=== PATIENT | male | born 1975 | race Caucasian/White ===

== ENCOUNTER → 2019-06-29 | Outpatient (CLI) | payer BC ==
--- NOTE | 2019-06-29 10:57 | Diagnostic Imaging Report ---
PROCEDURE: CT abdomen and pelvis without contrast. TECHNIQUE: Multiple contiguous axial images were obtained through the abdomen and pelvis without the use of intravenous contrast. Auto Exposure Controls were utilized during the CT exam to meet ALARA standards for radiation dose reduction. INDICATION: Hematuria. COMPARISON: No prior studies are available for comparison. FINDINGS: The lung bases are clear. There is a hiatal hernia present. No discrete liver mass is detected. Gallbladder is unremarkable. No biliary ductal dilatation is identified. Pancreas and spleen are unremarkable. No adrenal mass is detected. There are numerous bilateral nonobstructing renal calculi. There is a 3 mm x 6 mm calcification projected at the level of the mid left ureter. It is uncertain if this represents a true ureteral calculus versus phlebolith immediately adjacent to the left ureter. There does not appear to be significant hydronephrosis. No bladder calculi are seen. Prostate does appear to be mildly enlarged. There is diverticulosis throughout the colon but no evidence of acute diverticulitis. There is no free fluid or fluid collection. No bowel obstruction is identified. The bony structures are nonacute. IMPRESSION: 1. Hiatal hernia. 2. Bilateral nonobstructing nephrolithiasis. 3. 3 mm x 6 mm calcific density at the level of the mid left ureter, uncertain if this represents a true intraureteral calculus versus adjacent phlebolith. No hydronephrosis is seen. 4. Colonic diverticulosis without evidence of acute diverticulitis. 5. Prostatomegaly. Dictated by: Dictated on workstation # [id number]
== END ==
LOC: RAD FS 10:09
PROVIDERS: ATTEND Urology
DX: K44.9 Diaphragmatic hernia without obstruction or gangrene (principal); N20.0 Calculus of kidney; K57.30 Diverticulosis of large intestine without perforation or abscess without bleeding; N40.1 Benign prostatic hyperplasia with lower urinary tract symptoms; N28.89 Other specified disorders of kidney and ureter
CPT/HCPCS: 74176

== ENCOUNTER 2019-06-30 15:51 | Outpatient (RCR) | payer BC ==
--- NOTE | 2019-06-30 16:11 | Diagnostic Imaging Report ---
INDICATION: Left ureteral stone. Two views were obtained. FINDINGS: Bowel gas pattern is nonspecific. No definite stones are seen along the expected course of the left ureter. There are a few phleboliths in the pelvis. IMPRESSION: No definite radiopaque stones are seen along the expected course of the left ureter. Nonspecific bowel gas pattern. Dictated by: Dictated on workstation # [id number]
--- NOTE | 2019-07-11 09:52 | Diagnostic Imaging Report ---
INDICATION: Left ureteral stone COMPARISON: 06/30/2019 TECHNIQUE: 2 radiographs of the abdomen dated 07/08/2019. FINDINGS: The visualized lung bases are clear. Gas and stool is noted throughout the colon. No dilated loops of large or small bowel. No free air. No suspicious calcifications overlying the renal shadows. A 5 mm calcification is noted within the left pelvis, which appears similar to the prior examination, though is not definitely seen on the prior CT. No definite calcifications noted along the expected course of the ureters. Multiple phleboliths are again seen within the lower pelvis bilaterally. No acute osseous abnormality. IMPRESSION: Stable examination. 5 mm calcification overlying the left lower pelvis likely relates to a distal left ureterolith, which has progressed since the prior CT from 06/29/2019 when it was noted within the mid left ureter. Additional phleboliths within the lower pelvis. Dictated by: Dictated on workstation # [id number]
[2019-07-13] MEDS ORDERED: TMSL.4C PO (07:00)
[2019-07-13] MEDS ORDERED: TRAM50TA3 PO (08:59)
[2019-07-13] MEDS ORDERED: PHEN-640 PO (08:59)
[2019-07-13] MEDS ORDERED: SULF1TAB35 PO (08:59)
== END 2019-09-28 | disposition home or self-care (01) ==
LOC: LAB FS 15:51
PROVIDERS: ATTEND Urology
DX: N20.1 Calculus of ureter (principal)
CPT/HCPCS: 74018

== ENCOUNTER 2019-07-12 05:34 | Outpatient (CLI) | payer BC ==
[~2019-07-12] VITALS: Ht 182 cm; Wt 79.5 kg
[2019-07-13] MEDS ORDERED: TMSL.4C PO (07:00)
[2019-07-13] MEDS ORDERED: SULF1TAB35 PO (08:59)
[2019-07-13] MEDS ORDERED: TRAM50TA3 PO (08:59)
[2019-07-13] MEDS ORDERED: PHEN-640 PO (08:59)
== END 2019-07-12 12:37 | disposition home or self-care (01) ==
LOC: PREOP 05:34
PROVIDERS: ATTEND Urology
DX: Z01.818 Encounter for other preprocedural examination (principal)

== ENCOUNTER 2019-07-13 06:30 | Day surgery (SDC) | payer BC ==
[2019-07-13] VITALS (9 sets, daily range): BP systolic 97–131; BP diastolic 59–94
[~2019-07-13] VITALS: Ht 182 cm; Wt 79.5 kg
--- OUTSIDE RECORDS SUMMARY | 2019-07-13 06:34 | XMS REPORT | Continuity of Care Document ---
Author Organization Unknown Address Unknown Phone Unavailable Allergies There is no data. Medications There is no data. Problems Date Dx Coded Attending Type Code Diagnosis Diagnosed By 07/05/2019 AYAN HUFF MD, Ot K44.9 DIAPHRAGMATIC HERNIA WITHOUT OBSTRUCTION 07/05/2019 AYAN HUFF MD, Ot K57.3 0 DVRTCLOS OF LG INT W/O PERFORATION OR AB 07/05/2019 AYAN HUFF MD, Ot N20.0 CALCULUS OF KIDNEY 07/05/2019 AYAN HUFF MD, Ot N28.8 9 OTHER SPECIFIED DISORDERS OF KIDNEY AND 07/05/2019 AYAN HUFF MD, Ot N40.1 BENIGN PROSTATIC HYPERPLASIA WITH LOWER 07/11/2019 AYAN HUFF MD, Ot N20.1 CALCULUS OF URETER Procedures There is no data. Results Test Result Range CMP - 06/07/19 13:27 GLUCOSE 86 mg/dL 65-99 UREA NITROGEN (BUN) 15 mg/dL 7-25 CREATININE 1.06 mg/dL 0.60-1.35 eGFR NON-AFR. SURINAMESE 86 mL/min/1.73m2 > OR = 60 eGFR 100 mL/min/1.73m2 > OR = 60 BUN/CREATININE RATIO NOT APPLICABLE (calc) 6-22 SODIUM 139 mmol/L 135-146 POTASSIUM 4.2 mmol/L 3.5-5.3 CHLORIDE 104 mmol/L 98-110 CARBON DIOXIDE 24 mmol/L 20-32 CALCIUM 9.2 mg/dL 8.6-10.3 PROTEIN, TOTAL 7.3 g/dL 6.1-8.1 ALBUMIN 4.7 g/dL 3.6-5.1 GLOBULIN 2.6 g/dL (calc) 1.9-3.7 ALBUMIN/GLOBULIN RATIO 1.8 (calc) 1.0-2. 5 BILIRUBIN, TOTAL 0.9 mg/dL 0.2-1.2 ALKALINE PHOSPHATASE 86 U/L 36-130 AST 15 U/L 10-40 ALT 20 U/L 9-46 CBC w/MANUAL DIFF - 06/07/19 13:27 WHITE BLOOD CELL COUNT 4.9 Thousand/uL 3 .8-10.8 RED BLOOD CELL COUNT 4.97 Million/uL 4.2 0-5.80 HEMOGLOBIN 15.0 g/dL 13.2-17.1 HEMATOCRIT 42.4 % 38.5-50.0 MCV 85.3 fL 80.0-100.0 MCH 30.2 pg 27.0-33.0 MCHC 35.4 g/dL 32.0-36.0 RDW 13.1 % 11.0-15.0 PLATELET COUNT 244 Thousand/uL 140-400 MPV 10.2 fL 7.5-12.5 ABSOLUTE NEUTROPHILS 1764 cells/uL 1500- 7800 ABSOLUTE MONOCYTES 735 cells/uL 200-950 ABSOLUTE EOSINOPHILS 245 cells/uL 15-500 ABSOLUTE BASOPHILS 147 cells/uL 0-200 NEUTROPHILS 36 % NRG LYMPHOCYTES 38 % NRG MONOCYTES 15 % NRG EOSINOPHILS 5 % NRG BASOPHILS 3 % NRG ABSOLUTE BAND NEUTROPHILS 147 cells/uL 0 -750 ABSOLUTE LYMPHOCYTES 1862 cells/uL 850-3 900 BAND NEUTROPHILS 3 % NRG PLATELET ESTIMATION ADEQUATE ADEQUATE CBC MORPHOLOGY NORMAL Encounters ACCT No. Visit Date/Time Discharge Status Pt. Type Provider Facility Loc./Unit Complaint [id number] 06/07/2019 13:00:00 06/07/2019 23:59: 59 CLS Outpatient RULA CERDA [facility] [id number] 06/07/2019 17:40:00 Document Registration [id number] 06/30/2019 15:51:00 23:59:59 CLS Outpatient AYAN HUFF MD [facility] RAD FS URTERAL STONE [id number] 06/29/2019 10:09:00 23:59:59 CLS Outpatient AYAN HUFF MD [facility] RAD FS R31.0 [id number] 07/13/2019 14:00:00 P EN Preadmit AYAN HUFF MD [facility] SDC LEFT URETERAL STONE
[2019-07-13] MEDS ORDERED: cefTRIAXone FOR IV USE 1,000 MG in WATER (STERILE) FOR INJECTION 10 ML IV ONE (06:45)
[2019-07-13] MEDS ORDERED: TMSL.4C PO (07:00)
[2019-07-13] MEDS ORDERED: CATHETER FLUSH 10 ML SYR IV PRN (07:00)
[2019-07-13] MEDS ORDERED: fentaNYL INJECTION 100 MCG/2 ML AMP ONE (07:01)
[2019-07-13] MEDS ORDERED: MIDAZOLAM 2 MG/2 ML (VERSED) VIAL ONE (07:01)
--- NOTE | 2019-07-13 07:03 | Progress Note-Pre Operative ---
Pre-Operative Progress Note H&P Reviewed The H&P was reviewed, patient examined and no changes noted. Date Seen by Provider: Jul 13, 2019 Time Seen by Provider: 07:03 Date H&P Reviewed: Jul 13, 2019 Time H&P Reviewed: 07:03 Pre-Operative Diagnosis: LT DISTAL URETERAL STONE AYAN HUFF MD Jul 13, 2019 07:03
[2019-07-13] MEDS: LACTATED RINGERS 1,000 ML IV PRN ×2 (07:05→07:40)
--- NOTE | 2019-07-13 07:05 | Progress Note-Post Operative ---
Post-Operative Progess Note Surgeon (s)/Network Manager (s) Surgeon AYAN HUFF MD Network Manager: NONE Pre-Operative Diagnosis LT DISTAL URETERAL STONE Post-Operative Diagnosis SAME Procedure & Operative Findings Date of Procedure 07/13/19 Procedure Performed/Findings LT URETEROSCOPY WITH STONE LITHOTRIPSY Anesthesia Type GENERAL Estimated Blood Loss Estimated blood loss (mL): NONE Specimens/Packing Specimens Removed NONE Packing: NONE AYAN HUFF MD Jul 13, 2019 07:05
--- NOTE | 2019-07-13 07:07 | Discharge Inst-Urology ---
Discharge Inst-Urology Reconcile Patient Problems Problems Reviewed?: Yes Final Diagnosis LT DISTAL URETERAL STONE Patient Instructions/Follow Up Plan/Assessment/Instructions Please make appointment to been seen in office in 2 weeks. Increase oral fluids for 48 hours and then as needed. Diet and Activity as tolerated. If questions or concerns contact your physician Or seek help at emergency department. AYAN HUFF MD Jul 13, 2019 07:07
[2019-07-13] MEDS ORDERED: proPOfol 200 MG/20 ML (DIPRIVAN) VIAL IV ONE ×2 (07:42→07:49)
[2019-07-13] MEDS ORDERED: ROCURONIUM 10 MG/ML 5 ML SYRINGE IV ONE (07:42)
[2019-07-13] MEDS ORDERED: LIDOCAINE PF 2% 5 ML (XYLOCAINE) VIAL ONE (07:42)
[2019-07-13] MEDS ORDERED: ONDANSETRON 4 MG/2 ML (SDV) Z0FRAN ONE (07:42)
[2019-07-13] MEDS ORDERED: GLYCOPYRROLATE 0.2 MG/ML (ROBINUL) 2 ML VIAL ONE (07:43)
[2019-07-13] MEDS ORDERED: NEOSTIGMINE 3 MG/3 ML VIAL ONE (07:43)
[2019-07-13] MEDS ORDERED: FUROSEMIDE 40 MG/4 ML INJ (LASIX) ONE (07:45)
[2019-07-13] MEDS ORDERED: KETOROLAC 30 MG/ML VIAL ONE (07:45)
[2019-07-13] MEDS ORDERED: SEVOFLURANE (ULTANE) 15 ML INHAL SOLN ONE (07:47)
[2019-07-13] MEDS ORDERED: morphine INJ 10 MG/ML 1ML (SYR OR VIAL) IVP ONE (08:15)
[2019-07-13] MEDS ORDERED: MEPERIDINE (DEMEROL) INJ 50 MG/ML IVP ONE (08:15)
[2019-07-13] MEDS ORDERED: fentaNYL INJECTION 100 MCG/2 ML AMP IVP ONE (08:15)
[2019-07-13] MEDS ORDERED: SULF1TAB35 PO (08:59)
[2019-07-13] MEDS ORDERED: PHEN-640 PO (08:59)
[2019-07-13] MEDS ORDERED: TRAM50TA3 PO (08:59)
--- NOTE | 2019-07-13 11:39 | OPERATIVE REPORT ---
DATE OF SERVICE: 07/13/2019 PREOPERATIVE DIAGNOSIS: Left distal ureteral stone. POSTOPERATIVE DIAGNOSIS: Left distal ureteral stone. OPERATION PERFORMED: Left ureteroscopy with stone lithotripsy. SURGEON: Adolfo Huff MD ANESTHESIA: General. COMPLICATIONS: None. DESCRIPTION OF PROCEDURE: Under satisfactory general anesthesia, the patient in lithotomy position, the genitalia were prepped and draped in the usual sterile fashion. Cystoscope was introduced under vision. The anterior urethra was normal. The prostate was not obstructing. The bladder neck was open. The bladder was inspected and essentially normal except for very sluggish efflux on the left side. Using the foroblique lens, I dilated the left ureteral orifice intramural portion to the level of the stone to accommodate a 6.9-[place] semi-rigid ureteroscope. The stone was visualized. It had a lot of spikes and it was impacted in the wall of the ureter. I was able to completely fragment it and disimpacted it into very small fragments, very easy to pass. I removed the ureteroscope. The patient tolerated the anesthesia well and was sent to recovery room in a stable condition. Job ID: [id number] DocumentID: [id number] Dictated Date: 07/13/2019 08:12:49 Customer Service Advocate Date: 07/13/2019 11:38:33 Dictated By: ADOLFO HUFF MD
--- NOTE | 2019-07-13 11:54 | Anesthesia-General Post-Op ---
General Patient Condition Mental Status/LOC: Same as Preop Cardiovascular: Satisfactory Nausea/Vomiting: Absent Respiratory: Satisfactory Pain: Controlled Complications: Absent Post Op Complications Complications None Follow Up Care/Instructions Patient Instructions None needed. Anesthesia/Patient Condition Patient Condition Patient is doing well, no complaints, stable vital signs, no apparent adverse anesthesia problems. No complications reported per nursing. BEN BLOUNT CRNA Jul 13, 2019 11:54
== END 2019-07-13 09:25 | disposition home or self-care (01) ==
LOC: SDC 06:30
PROVIDERS: ATTEND Urology
DX: N20.1 Calculus of ureter (principal); Z11.2 Encounter for screening for other bacterial diseases; N28.1 Cyst of kidney, acquired; Z87.891 Personal history of nicotine dependence
CPT/HCPCS: 87081